=== PATIENT | male | born 1960 | race Caucasian/White ===

== ENCOUNTER 2019-06-24 21:15 | Emergency (ER) | payer BC ==
[2019-06-24 21:31] VITALS: BP 158/104; PULSE 83; TEMP 97.8; BMI 29.8
[2019-06-24] MEDS ORDERED: NAPROXEN 500 MG TABLET (FP) PO ONE (21:41)
--- NOTE | 2019-06-24 21:53 | PDOC ---
Documentation entered by Yana Kuo SCRIBE, acting as scribe for Whitney Smith MD. Whitney Smith MD: This documentation has been prepared by the lavonneibe, Yana Kuo SCRIBE, under my direction and personally reviewed by me in its entirety. I confirm that the documentation accurately reflects all work , treatment, procedures, and medical decision making performed by me. History of Present Illness - General Chief Complaint: Head/Neck problem Stated Complaint: RT FACIAL NUMBNESS/HEADACHE History Source: Patient Exam Limitations: No Limitations - History of Present Illness Initial Comments: The patient is a 59-year-old male who presents to the emergency department with 9 months of right-sided facial numbness, with a new onset of a right-sided headache. The patient reports a 9 month ongoing right-sided facial numbness, with multiple workups, CT, and MRI for the symptoms over the last 9 months, with no cause ever found. The patient reports he was told the symptoms are psychological stressors in origin. The patient reports hes been experiencing a lot of stress lately. The patient reports about 2 hours SMOCKER, he had an onset of right-sided headache associated with phonophobia. Denies nausea or photophobia. The patient reports he took an aleve a little before coming here. The patient reports he was told about 2 years ago that he had a TIA or Transient migraine. PAST MEDICAL HISTORY: The patient reports his PMH as: Tourette syndrome, OCD, depression and Type 2 DM. PAST SURGICAL HISTORY: no significant history FAMILY HISTORY: no pertinent history SOCIAL HISTORY: Pt presents to the ER accompanied by daughter. MEDICATIONS: reviewed ALLERGIES: As per nursing notes Review of system: General: No fevers or chills, no weakness, no weight loss HEENT: +phonophobia. No change in vision. No sore throat,. No ear pain CardioVascular: No chest pain or shortness of breath Respiratory: No cough, or wheezing. Gastrointestinal: no nausea, vomiting, diarrhea or constipation, No rectal bleeding Genitourinary: No dysuria, hematuria, or frequency Musculoskeletal: No joint or muscle pain or swelling Neurologic: +right sided headache. Right facial numbness (ongoing for the past 9 months). No vertigo, dizziness or loss of consciousness Psychiatric: nor depression Skin: No rashes or easy bruising Endocrine: no increased thirst or abnormal weight change Allergic: no skin or latex allergy All other systems reviewed and normal Physical exam: GENERAL: The patient is awake, alert, and fully oriented, in no acute distress. HEAD: Normal with no signs of trauma. EYES: Pupils equal, round and reactive to light, extraocular movements intact, sclera anicteric, conjunctiva clear. EXTREMITIES: Normal range of motion, no edema. NEUROLOGICAL: +numbness to the right side of the face and ear. No numbness to the forehead, Sensation: Sensation is intact to light touch throughout. Fundoscopic exam normal, Mental status: The patient alert and oriented x3. Cranial nerves: Cranial nerves II through XII are intact, Motor: The upper extremities are 5 over 5 in all muscle groups. The lower extremities are 5 over 5 in all muscle groups. Cerebellar: [id number]-[id number] is normal in both upper extremities. Normal gait. PSYCH: Normal mood, normal affect. SKIN: Warm, Dry, normal turgor, no rashes or lesions noted. 06/24/19 21:53 Assessment and plan: This is a 59-year-old male with a long history of anxiety and psychological issues. Patient has had multiple ED visits for what sounds like some attestation of his underlying psychological issues. Patient has had approximately 9 months of right facial numbness that has had multiple evaluations including CAT scan, MRI and patient is been told that no neurological or physical cause for his numbness. Patient has been told that it is secondary to his stress and psychological issues. Patient now comes in complaining of a headache on the right side. Patient denies history of headaches in the past. Patient did not take anything for the headache but is very anxious and concerned about the headache. Patient denies any photophobia, nausea but does say that noises and loud sounds bother him. I discussed with patient treatment of migraine however patient does not want any medications here in the emergency room. Patient was offered Toradol and Reglan which she refused. Patient had a Aleve in his pocket which she took and then requested discharge. Patient discharged and told that he should follow-up with a neurologist and his primary care doctor. Patient was offered a prescription which he refused. 06/24/19 22:05 06/24/19 22:14 Past History - Past Medical History Allergies/Adverse Reactions: Allergies Allergy/AdvReac Type Severity Reaction Status Date / Time benztropine [From Cogentin] Allergy Verified 06/24/19 21:31 cephalexin [From Keflex] Allergy Verified 06/24/19 21:32 risperidone Allergy Verified 06/24/19 21:31 SSRI AdvReac Uncoded 06/24/19 21:32 Home Medications: Ambulatory Orders Alprazolam [Xanax] 0.25 mg PO PRN PRN 06/24/19 Aspirin [Ecotrin] 81 mg PO DAILY 06/24/19 Atorvastatin Ca [Lipitor] 10 mg PO HS 06/24/19 Paroxetine HCl [Paxil] 10 mg PO DAILY 06/24/19 metFORMIN HCL [Metformin HCl] 850 mg PO BID 06/24/19 *Physical Exam - Vital Signs Last Vital Signs Temp Pulse Resp BP Pulse Ox 97.8 F 83 16 158/104 H 98 06/24/19 21:23 06/24/19 21:23 06/24/19 21:23 06/24/19 21:23 06/24/19 21:23 ED Treatment Course - Medications Given in the ED: ED Medications Discontinued Medications Generic Name Dose Route Start Last Admin Trade Name Antioneq PRN Reason Stop Dose Admin Naproxen 500 mg 06/24/19 21:41 06/24/19 21:47 Naprosyn - PO 06/24/19 21:42 Not Given ONCE ONE Discharge - Discharge Information Problems reviewed: Yes Clinical Impression/Diagnosis: Migraine Qualifiers: Migraine type: unspecified Status migrainosus presence: without status migrainosus Intractability: not intractable Qualified Code(s): G43.909 - Migraine, unspecified, not intractable, without status migrainosus Condition: Stable Disposition: HOME - Admission No - Follow up/Referral Referrals: Bello Hamilton [Primary Care Provider] - - Patient Discharge Instructions Additional Instructions: Take naproxen 2 tablets twice a day with food as needed for the pain. Follow-up with a neurologist or your primary care doctor. Return to the emergency department immediately with ANY new, persistent or worsening symptoms. Continue any medications as previously prescribed by your physician. You should follow up with your primary doctor as soon as possible regarding today's emergency department visit. . Please make sure your doctor reviews the results of your emergency evaluation. Thank you for coming to the Emergency Department today for your care. It was a pleasure to see you today. Please note that your evaluation is INCOMPLETE until you follow-up with your doctor. - Post Discharge Activity
[2019-06-24] MEDS ORDERED: CODEINE SO4 30 MG TABLET PO ONE (22:41)
== END 2019-06-24 21:54 | disposition home or self-care (01) ==
LOC: FER 21:15
DX: G43.909 Migraine, unspecified, not intractable, without status migrainosus (principal); Z88.8 Allergy status to other drugs, medicaments and biological substances
CPT/HCPCS: 99281-25